=== PATIENT | male | born 1985 | race Caucasian/White ===

== ENCOUNTER 2021-09-24 12:58 | Emergency (ER) | payer SELFPAY ==
--- NOTE | ~2021-09-24 | XR_ITS ---
EXAMINATION: XR chest 2V DATE: 09/24/2021 14:42 INDICATION: Right shoulder pain. Injury. TECHNIQUE: Frontal and lateral views of the chest were obtained. COMPARISON: None. FINDINGS: There is mild scarring at the lung apices. No pleural effusion or pneumothorax. The heart s ize is normal. IMPRESSION: 1. Mild scarring at the lung apices. Reviewed, dictated and finalized at location A.
--- NOTE | ~2021-09-24 | XR_ITS ---
EXAMINATION: XR shoulder RT min 2V DATE: 09/24/2021 13:57 INDICATION: Right shoulder pain. Injury. TECHNIQUE: 4 views of right shoulder were obtained. COMPARISON: None. FINDINGS: Bone alignment is normal. No fracture. Joint spaces are well maintained. IMPRESSION: 1. Normal right shoulder. Reviewed, dictated and finalized at location A. IMPRESSION: 1. Normal right shoulder.
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
[2021-09-24 13:03] VITALS: BP 151/96; PULSE 57; RESP 16; TEMP 36.7; O2SAT 99
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
[2021-09-24 14:59] VITALS: BP 142/78; PULSE 52; RESP 18; TEMP 36.8; O2SAT 99
[2021-09-24] MEDS: IBUPROFEN 600 MG TABLET PO (15:00)
== END 2021-09-24 15:11 | disposition home or self-care (01) ==
PROVIDERS: Emergency Provider Emergency Medicine
DX: S40.011A Contusion of right shoulder, initial encounter (principal); V86.56XA Driver of dirt bike or motor/cross bike injured in nontraffic accident, initial encounter
CPT/HCPCS: 70450; 71046; 73030; 99284; A4565; A9270

== ENCOUNTER 2022-07-08 11:11 | Emergency (ER) | payer SELFPAY ==
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
[2022-07-08 11:20] VITALS: BP 116/73; PULSE 70; RESP 16; TEMP 36.7; O2SAT 98
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
[2022-07-08 12:47] LABS: Estimated CRCL calculation 70 ml/min; Estimated Glomerular Filt Rate > 60
[2022-07-08] MEDS: HYDROcodone/acetaminophen (*CRX) 5-325 MG TABLET 1 TAB PO (14:56)
== END 2022-07-08 15:46 | disposition home or self-care (01) ==
PROVIDERS: Emergency Provider Physician Assistant
DX: S05.01XA Injury of conjunctiva and corneal abrasion without foreign body, right eye, initial encounter (principal); W51.XXXA Accidental striking against or bumped into by another person, initial encounter
CPT/HCPCS: 70481; 99284; A9270; Q9967

== ENCOUNTER 2024-06-08 13:02 | Emergency (ER) | payer OTHER, SELFPAY ==
--- NOTE | ~2024-06-08 | XR_ITS ---
EXAMINATION: XR finger 1st RT min 2V DATE: 06/08/2024 13:35 INDICATION: Right thumb injury. TECHNIQUE: 3 views of right thumb were obtained. COMPARISON: None. FINDINGS: Alignment is normal. No fracture. There is mild osteoarthritis of first metacarpophalangeal joint. IMPRESSION: 1. No fracture. Reviewed, dictated and finalized at location A. 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 No fracture.
[2024-06-08 13:04] VITALS: BP 141/73; PULSE 82; RESP 17; TEMP 36.7; O2SAT 98
--- NOTE | 2024-06-08 14:53 | ED.WOUNDLAC ---
HPI - Wound/Laceration General Chief Complaint: Wound/Laceration Stated Complaint: R thumb injury Time Seen by Provider: 06/08/24 13:52 History of Present Illness HPI narrative: 38-year-old male presenting to the emergency department after smashing his thumb between a drill and a 2 x 4. Was otherwise in his normal state of health. Patient denies any significant pain or swelling. Small semi circular some laceration to his right arm. No bleeding. Small subungual hematoma under 50% of the total nail. Denies any other injuries. Tetanus not up to date. Related Data Allergies Allergy/AdvReac Type Severity Reaction Status Date / Time No Known Allergies Allergy Mild Verified 06/08/24 14:50 Review of Systems Review of Systems: As [facility] Past Medical History Medical History Patient denies significant medical history Social History Social History Smoking status: Never smoker Exam Narrative: GENERAL: [Well-appearing, well-nourished, and in no acute distress.] HEAD: [Normocephalic, atraumatic.] EYES: [PERRLA and EOMI.] ENT: Nares clear, no rhinorrhea or epistaxis. Mucous membranes moist. NECK: Supple. CHEST: [Clear to auscultation. No respiratory distress.] HEART: [Regular rate and rhythm]. No murmur heard. [Normal peripheral pulses.] ABDOMEN: [Soft, nondistended], [nontender], [No rigidity or guarding] EXTREMITIES: Right thumb with full range of motion, no tenderness of the interphalangeal joint or MCP joint. Small semi circular 1.6 cm laceration without any significant deep tissue involvement on the palmar surface of the right thumb. Less than 50% subungual hematoma on the right thumb SKIN: Warm, dry, no rash. NEURO: [No focal deficits]. Alert and oriented [x3.] PSYCH: [Normal mood and affect.] Course Vital Signs Vital signs: Vital Signs Temperature 36.7 C 06/08/24 13:04 Pulse Rate 82 06/08/24 13:04 Respiratory Rate 17 06/08/24 13:04 Blood Pressure 141/73 H 06/08/24 13:04 Pulse Oximetry 98 06/08/24 13:04 Oxygen Delivery Room Air 06/08/24 13:04 Temperature 36.7 C 06/08/24 13:04 Pulse Rate 82 06/08/24 13:04 Respiratory Rate 17 06/08/24 13:04 Blood Pressure 141/73 H 06/08/24 13:04 Pulse Oximetry 98 06/08/24 13:04 Oxygen Delivery Room Air 06/08/24 13:04 Procedures Laceration Laceration 1: Date: 06/08/24 Time: 15:02 Site: hand Side (If applicable): right Size (cm): 1.5 Description: linear Depth: simple, single layer Local Anesthetic: none Pre-repair: wound explored and irrigated ====== Skin Level ====== Skin layer closed with: dermabond ====== Subcutaneous Layer ====== ====== Muscle Layer ====== ====== Tendon Layer ====== Dressing: Gauze MDM - Wound/Laceration MDM Narrative Medical decision making narrative: 38-year-old male presenting for injury to his right thumb. He was using a drill and accidentally torqued to hard and smashed his right thumb between the drill and a 2 x 4. Small semicircular laceration to the palmar aspect of his thumb on the padded surface, no active bleeding. No deep tissue involvement. Tetanus needs to be updated and was ordered. No obvious external signs of bony injury. Full range of motion of the thumb without significant pain. X-rays were obtained and reviewed by myself and unremarkable without any fractures. Confirmed by Radiology. Subungual hematoma not causing any pain and does not require any trephination at this time. His tetanus was updated and his laceration was repaired with Dermabond as described above. Patient given instructions and had a care for his wound and stable for discharge home at this time. Discharge Plan Discharge Clinical Impression: Subungual hematoma, Laceration Patient Disposition: Home, Self-Care Condition: Stable Instructions: Antibiotic Form, Laceration (ED), Skin Adhesive Care (ED) Prescriptions: No Action ibuprofen [IBU] 600 mg tablet 600 mg PO Q6H PRN (Reason: pain) Qty: 20 0RF erythromycin 5 mg/gram (0.5 %) ointment 1 applic RIGHT EYE DAILY Qty: 50 0RF Follow-up/Referrals: UNKNOWN,DOCTOR [Primary Care Provider] - Time of Disposition: 15:03
[2024-06-08] MEDS: TETANUS,DIPHTHERIA,AC PERTUSSIS ADULT (0.5 ML) BOOSTRIX IM (15:31)
== END 2024-06-08 15:55 | disposition home or self-care (01) ==
PROVIDERS: Emergency Provider Student in an Organized Health Care Education/Training Program
DX: S60.111A Contusion of right thumb with damage to nail, initial encounter (principal); S61.011A Laceration without foreign body of right thumb without damage to nail, initial encounter; Z23 Encounter for immunization; W29.8XXA Contact with other powered hand tools and household machinery, initial encounter
CPT/HCPCS: 12001; 73140; 90471; 90715; 99283